=== PATIENT | female | born 1955 | race Caucasian/White ===

== ENCOUNTER 2022-04-30 19:35 | Emergency (ER) | payer MEDICARE, OTHER ==
[2022-04-30 20:42] LABS: BASOPHIL 0.5 % (0-2); EOSINOPHIL 2.9 % (0-7); HCT 36.6 % (37.0-47.0); HGB 12.4 g/dl (12.5-16.0); LYMPHOCYTE 44.5 % (15-48); MCH 29.5 pg (25.0-31.0); MCHC 33.9 g/dL (32.0-36.0); MCV 87.1 fL (78.0-100.0); MONOCYTE 13.4 % (0-12); MPV 11.2 fL (6.0-9.5); NEUTROPHIL 38.7 % (41-80); NRBC 0; PLT 164 K/uL (150-400); RDW 11.9 % (11.5-14.0); WBC 2.1 K/uL (4.0-10.5)
[2022-04-30 21:05] LABS: BILIRUBIN - TOTAL 0.6 mg/dL (0.2-1.0); BUN/CREAT RATIO (CALC) 17.5 RATIO; CREATININE 0.63 mg/dL (0.51-0.95); GLOBULIN (CALCULATION) 3.7 g/dL; POTASSIUM 3.6 mmol/L (3.5-5.1); TOTAL PROTEIN 7.7 g/dL (6.4-8.2)
[2022-04-30] MEDS ORDERED: NORCO 5-325 TA1 EACH PO (22:12)
[2022-04-30] MEDS ORDERED: ULTRAM50 MG PO (22:15)
[2022-04-30] MEDS ORDERED: NAPROXEN500 MG PO (22:19)
== END 2022-04-30 22:30 | disposition home or self-care (01) ==
LOC: FER 19:35
PROVIDERS: Emergency Medicine
DX: U07.1 COVID-19 (principal); R07.89 Other chest pain; I10 Essential (primary) hypertension; Z87.891 Personal history of nicotine dependence; Z88.8 Allergy status to other drugs, medicaments and biological substances; Z79.82 Long term (current) use of aspirin; Z79.899 Other long term (current) drug therapy
CPT/HCPCS: 36415; 71045; 80053; 84145; 84484; 85025; 85379; 93005; J1170; J2405